=== PATIENT | female | born 1995 | race Caucasian/White ===

== ENCOUNTER 2017-04-04 23:36 | Inpatient (IN) | payer MEDICAID ==
[~2017-04-04] VITALS: Wt 81.4 kg
[~2017-04-04 23:36] MED LIST: MOTRIN 800800 MG/TAB PO
[2017-04-05] VITALS (45 sets, daily range): BP systolic 110–149; BP diastolic 58–87; PULSE 78–141; TEMP 97.9–98.4
[2017-04-05] MEDS ORDERED: PRENATAL1 TA7 PO (00:06)
[2017-04-05 01:15] LABS: BASO % 0.3 % (0.0-2.0); EOS # 0.1 (0.0-0.7); EOS % 0.7 % (0-4.0); GRAN # 6.8 (1.4-6.5); GRAN % 68.6 % (42.2-75.2); LYMPH # 2.4 (1.2-3.4); LYMPH % 23.7 % (20.0-51.0); MEAN CELL VOLUME 91 fl (80.0-100.0); MEAN CORPUSCULAR HEMOGLOBIN 31 pg (27.0-31.0); MEAN CORPUSCULAR HGB CONC 34 g/dl (33.0-37.0); MEAN PLATELET VOLUME 11.6 fl (7.4-10.4); MONO # 0.6 (0.1-0.6); MONO % 6.2 % (1.7-9.3); PLATELET COUNT 189 K/mm3 (130-400); RED BLOOD COUNT 4.53 M/mm3 (4.10-5.30); REDCELL DISTRIBUTION WIDTH-CV 13.6 % (11.5-14.5)
[2017-04-06 00:15] VITALS: BP 124/61; PULSE 82; TEMP 97.4
[2017-04-06 05:00] VITALS: BP 88/56; PULSE 79; TEMP 97.2
[2017-04-06 05:45] VITALS: BP 124/76; PULSE 79
[2017-04-06 09:27] VITALS: BP 113/67; PULSE 79; TEMP 97.8
[2017-04-06 16:32] VITALS: BP 136/85; BP 141/88; PULSE 78; PULSE 82; TEMP 97.4; TEMP 98.2
[2017-04-06 19:20] VITALS: BP 113/58; PULSE 96; TEMP 97.8
[2017-04-07 07:22] VITALS: BP 119/76; PULSE 86; TEMP 98.1
[2017-04-07] MEDS ORDERED: PERCOCET 325 MG1 TA2 PO (09:36)
[2017-04-07] MEDS ORDERED: MOTRIN 800800 MG/TAB PO (09:36)
== END 2017-04-07 12:50 | disposition home or self-care (01) | DRG 775 ==
LOC: LDRO 23:36 → OB 04-05 00:34 → LDR 04-05 00:34 → OB 04-05 14:00 → LDRO 04-09 14:48
PROVIDERS: Obstetrics & Gynecology
PROC: 10E0XZZ Delivery of Products of Conception, External Approach (ICD-10-PCS; principal; 2017-04-05)
PROC: 0KQM0ZZ Repair Perineum Muscle, Open Approach (ICD-10-PCS; 2017-04-05)
DX: O77.0 Labor and delivery complicated by meconium in amniotic fluid (principal); O69.2XX0 Labor and delivery complicated by other cord entanglement, with compression, not applicable or unspecified; O70.1 Second degree perineal laceration during delivery; Z3A.39 39 weeks gestation of pregnancy; Z37.0 Single live birth
CPT/HCPCS: J2590; J2795; J7120

== ENCOUNTER 2019-02-12 02:10 | Inpatient (IN) | payer OTHER ==
[~2019-02-12] VITALS: Ht 162.6 cm; Wt 80.0 kg
[2019-02-12] VITALS (33 sets, daily range): BP systolic 110–146; BP diastolic 55–86; PULSE 79–114; TEMP 97.3–98.6
[~2019-02-12 02:10] MED LIST changes: +PERCOCET 325 MG1 TA2 PO; +PRENATAL1 TA7 PO
--- NOTE | 2019-02-12 02:15 | NUR ---
PT ARRIVED TO UNIT AMBULATORY WITH FOB AND COUSIN. PT NON ANGUILLAN SPEAKING, COUSIN SPEAKS ANGUILLAN WELL. PT DOCTORS IN [place], WILL REQUEST PRENATALS. COUSIN STATES THAT PT IS 40.0 WEEKS, G3L2, GBS +, WITH NO OTHER SIGNIFICANT HX. COUSIN STATES THAT THE PT'S CONTRACTIONS STARTED AT 1900 ON 02/11/19 AND BECAME STRONGER AROUND 2200 ON 02/11/19. DENIES LOF/VB. SVE PERFORMED, /-2 WITH BULGING BAG OF WATER. WILL NOTIFIED [employer] LEAD PHYSICIAN OF PT ARRIVAL
--- NOTE | 2019-02-12 03:15 | NUR ---
Plan of care explained to pt and translated to pt per cousin. IV started and labs obtained via IV site. LR bolus infusing and Pen G infusing without difficulties. Consents translated to pt by cousin and signed. Pt denies questions at this time. Will continue to monitor. 0356: Pt requesting epidural. LR bolus already infused. Trisha ANESTHESIOLOGIST AND CRITICAL CARE notified. Pt up to bathroom to void. 0407: Pt assisted back to bed and on EOB. Difficulty tracing FHR due to maternal position. RN at bedside adjusting monitors. Pulse ox applied and tracing well. 0420: Trisha ANESTHESIOLOGIST AND CRITICAL CARE at bedside for epidural placement. 0425: Single shot administered by KAMI Rico. See anesthesia records 0430: Pt assisted to wedge left position. Plan of care and safety precautions explained to pt and significant other. Call light within reach. Will continue to monitor.
[2019-02-12 03:48] LABS: BASO % 0.3 % (0.0-2.0); EOS # 0.1 (0.0-0.7); EOS % 0.6 % (0-4.0); GRAN % 71.8 % (42.2-75.2); HEMATOCRIT 42.3 % (37.0-47.0); HEMOGLOBIN 14.5 g/dl (12.5-16.0); LYMPH # 2.4 (1.2-3.4); LYMPH % 21.7 % (20.0-51.0); MEAN CELL VOLUME 91 fl (80.0-100.0); MEAN CORPUSCULAR HEMOGLOBIN 31 pg (27.0-31.0); MEAN CORPUSCULAR HGB CONC 34 g/dl (33.0-37.0); MEAN PLATELET VOLUME 11.4 fl (7.4-10.4); MONO # 0.6 (0.1-0.6); MONO % 5.1 % (1.7-9.3); PLATELET COUNT 196 K/mm3 (130-400); RED BLOOD COUNT 4.67 M/mm3 (4.10-5.30); REDCELL DISTRIBUTION WIDTH-CV 14.2 % (11.5-14.5)
--- NOTE | 2019-02-12 05:43 | NUR ---
Norris catheter inserted without difficulites. Pale yellow/clear urine output noted. SVE 6/100/-2. Pericare provided and pt repositioned to with peanut ball. Call light within reach.
--- NOTE | 2019-02-12 07:55 | NUR ---
Dr. Levy at bedside. SVE /-1, no bag felt, small amount of clear fluid noted.
--- NOTE | 2019-02-12 08:00 | NUR ---
Pitocin started at 2mu per orders and protocol.
--- NOTE | 2019-02-12 09:09 | NUR ---
0900 Dr. Levy at bedside. SVE - complete/+2. Patient prepped for delivery. 907 Patient pushes with one contraction and of viable female infant by Dr. Levy at 908. Cord clamped and cut and infant to the care of the nursery RN. 912 Spontaneous delivery of placenta by Dr. Levy. Pitocin infusing at 333ml/hr per orders and protocol. Fundus firm, lochia WNL. 1st degree laceration repaired by Dr. Levy.
--- NOTE | 2019-02-12 19:37 | NUR ---
Pt sleeping in bed, laying in bed beside her sleeping. RN woke patient and reminded her infant needs to be in crib if pt is asleep. RN placed infant in crib. Pt verbalized understanding. [place] certificate form and paternity papers provided. D/c board updated.
--- NOTE | 2019-02-12 19:40 | NUR ---
Pt declined bedside report. Report received. Care taken over by this RN.
[2019-02-13 00:53] VITALS: BP 117/52; PULSE 80; TEMP 98.4
[2019-02-13 07:45] VITALS: BP 118/59; PULSE 74; TEMP 97.5
[2019-02-13] MEDS ORDERED: IBU600 MG PO (08:19)
--- NOTE | 2019-02-13 09:14 | NUR ---
Initial visit; Parents thanked [employer] for offering congratulations and God's blessings for the of their son. [employer] thanked them for choosing [facility].
[2019-02-13 15:25] VITALS: BP 129/81; PULSE 82; TEMP 98.3
== END 2019-02-13 17:00 | disposition home or self-care (01) | DRG 807 ==
LOC: LDRO 02:10 → LDR 03:07 → OB 03:07
PROVIDERS: ADMIT Obstetrics & Gynecology
PROC: 10E0XZZ Delivery of Products of Conception, External Approach (ICD-10-PCS; principal; 2019-02-13)
PROC: 0HQ9XZZ Repair Perineum Skin, External Approach (ICD-10-PCS; 2019-02-13)
DX: O99.824 Streptococcus B carrier state complicating childbirth (principal); Z37.0 Single live birth; Z3A.40 40 weeks gestation of pregnancy; O70.0 First degree perineal laceration during delivery
CPT/HCPCS: J2540; J2590; J2795; J7120